=== PATIENT | female | born 1950 | race Caucasian/White ===

== ENCOUNTER → 2020-08-04 12:43 | Outpatient (CLI) | payer MEDICARE, SELFPAY ==
--- NOTE | ~2020-08-04 | CT_ITS ---
EXAMINATION:CT diagnostic chest wo con DATE: 08/04/2020 13:02 INDICATION: Lung nodule. TECHNIQUE: Computed tomography (CT) of the chest was performed without intravenous contrast. Automate d exposure control and iterative reconstruction technique were employed. The dose-length product (DLP ) was 215.80 mGy-cm. COMPARISON: None. FINDINGS: There is mild atelectasis bilaterally. There is an 8 mm nodule in left upper lobe. No pleur al effusion. The heart size is normal. There are coronary artery calcifications. There are changes of aortic valve replacement. There is diffuse hepatic steatosis. There are changes of cholecystectomy. There are bridging endplate osteophytes at multiple levels in the spine, consistent with diffuse idio pathic skeletal hyperostosis (DISH). IMPRESSION: 1. 8 mm left upper lobe pulmonary nodule suspicious for primary bronchogenic carcinoma. Noncontrast low-dose chest CT is recommended in 3 months. Reviewed, dictated and finalized at location A. IMPRESSION: 1. 8 mm left upper lobe pulmonary nodule suspicious for primary bronchogenic c arcinoma. Noncontrast low-dose chest CT is recommended in 3 months.
== END ==
PROVIDERS: PCP Family Medicine; Visit Provider Family Medicine
DX: R91.1 Solitary pulmonary nodule (principal); R92.8 Other abnormal and inconclusive findings on diagnostic imaging of breast
CPT/HCPCS: 71250